=== PATIENT | female | born 1985 | race Caucasian/White ===

== ENCOUNTER 2017-12-05 18:51 | Emergency (ER) | payer OTHER ==
[~2017-12-05] VITALS: Ht 157.5 cm; Wt 77.1 kg
[~2017-12-05 18:51] MED LIST: HYDROCODONE-AP1 EAC6 PO; IBUPROFEN 800800 MG PO; MEDROLDOSEPACK PO
[2017-12-05] MEDS ORDERED: IBUPROFEN 800800 M1 PO (20:21)
[2017-12-05] MEDS ORDERED: NORCO 5-325 TA1 EACH PO (20:21)
[2017-12-05 20:41] VITALS: BP 145/79
== END 2017-12-05 20:41 | disposition home or self-care (01) ==
LOC: M.ERS 18:51
DX: S20.211A Contusion of right front wall of thorax, initial encounter (principal); W18.39XA Other fall on same level, initial encounter; Y93.89 Activity, other specified; Y92.89 Other specified places as the place of occurrence of the external cause; Y99.8 Other external cause status